=== PATIENT | female | born 1985 | race Caucasian/White ===

== ENCOUNTER 2018-02-14 09:05 | Emergency (ER) | payer OTHER ==
[2018-02-14 09:24] VITALS: BMI 23.9
--- NOTE | 2018-02-14 09:46 | PDOC ---
History of Present Illness <AugustoShanekapam - Last Filed: 02/14/18 12:22> - History of Present Illness Initial Comments: 02/14/18 09:58 The patient is a 32 year old approximately 10 weeks female (), with a significant past medical history of thrombocytopenia (last platelet count was 92K in 12/2017 per pt), who presents to the emergency with vaginal bleeding and pelvic pain since yesterday. Patient reports one episode of light vaginal bleeding (no clots) yesterday afternoon. She reports associated pelvic and epigastric pain, which she describes as a cramping. She denies any associated nausea, vomiting, diarrhea, or constipation. She denies any dysuria, hematuria, frequency, or urgency. She reports some chills, but denies any fever. Patient reports she has seen her OB Dr. Li and is scheduled for an Ultrasound on 02/28/18. She denies any recent trauma, heavy lifting, travel, or sick contacts. Patient reports her previous was a NVSD, no complications. Allergies: NKDA Past Surgical History: None reported Social History: Non smoker. No ETOH or recreational drug use. OBGYN: Dr. Li <Gerson Price - Last Filed: 02/14/18 13:00> - General Chief Complaint: Vaginal Bleeding Stated Complaint: VAGINAL BLEEDING (10 WKS ) Past History <AugustoShanekapam - Last Filed: 02/14/18 12:22> - Past Medical History COPD: No - Suicide/Smoking/Psychosocial Hx Smoking History: Never smoked Have you smoked in the past 12 months: No Information on smoking cessation initiated: No Hx Alcohol Use: No Drug/Substance Use Hx: No Substance Use Type: None <Gerson Price - Last Filed: 02/14/18 13:00> - Past Medical History Allergies/Adverse Reactions: Allergies Allergy/AdvReac Type Severity Reaction Status Date / Time No Known Allergies Allergy Verified 02/14/18 09:19 Home Medications: Ambulatory Orders Vit/Iron Fum/Folic AC [ Tablet] 1 each PO DAILY 02/14/18 Review of Systems - Review of Systems Comments:: 02/14/18 09:59 GENERAL/CONSTITUTIONAL: +Chills. No fever. No weakness. HEAD, EYES, EARS, NOSE AND THROAT: No change in vision. No ear pain or discharge. No sore throat. GASTROINTESTINAL: +Epigastric pain, pelvic pain. No nausea, vomiting, diarrhea or constipation. GENITOURINARY: +Vaginal spotting, brown vaginal discharge. No dysuria, frequency , or change in urination. CARDIOVASCULAR: No chest pain or shortness of breath. RESPIRATORY: No cough, wheezing, or hemoptysis. MUSCULOSKELETAL: No joint or muscle swelling or pain. No neck or back pain. SKIN: No rash NEUROLOGIC: No headache, vertigo, loss of consciousness, or change in strength/ sensation. ENDOCRINE: No increased thirst. No abnormal weight change. HEMATOLOGIC/LYMPHATIC: No anemia, easy bleeding, or history of blood clots. ALLERGIC/IMMUNOLOGIC: No hives or skin allergy. <Gerson Price - Last Filed: 02/14/18 13:00> *Physical Exam - Vital Signs Last Vital Signs Temp Pulse Resp BP Pulse Ox 98.3 F 65 201 H 113/43 99 02/14/18 09:21 02/14/18 09:21 02/14/18 09:21 02/14/18 09:21 02/14/18 09:21 <Ha Casas - Last Filed: 02/14/18 12:22> - Vital Signs Last Vital Signs Temp Pulse Resp BP Pulse Ox 98.3 F 65 201 H 113/43 99 02/14/18 09:21 02/14/18 09:21 02/14/18 09:21 02/14/18 09:21 02/14/18 09:21 - Physical Exam Comments: 02/14/18 09:59 GENERAL: Awake, alert, and fully oriented, in no acute distress HEAD: No signs of trauma EYES: PERRLA, EOMI, sclera anicteric, conjunctiva clear LUNGS: Breath sounds equal, clear to auscultation bilaterally. No wheezes, and no crackles HEART: Regular rate and rhythm, normal S1 and S2, no murmurs, rubs or gallops ABDOMEN: Soft, nontender, normoactive bowel sounds. No guarding, no rebound. No masses PELVIC: Normal ext genitalia, +midline pelvic tenderness. Os is closed. Scant white discharge in the vaginal vault that appeared physiologic. No blood in vault. No adnexal tenderness. EXTREMITIES: Normal range of motion, no edema. No clubbing or cyanosis. No cords, erythema, or tenderness NEUROLOGICAL: Normal speech, cranial nerves intact, negative pronator drift, 5/ 5 strength in all 4 extremities, normal sensation to light touch in all 4 extremities, normal cerebellar exam, normal gait, normal reflexes and tone <Gerson Price - Last Filed: 02/14/18 13:00> ED Treatment Course - LABORATORY CBC & Chemistry Diagram: 02/14/18 10:10 02/14/18 10:10 - ADDITIONAL ORDERS Additional order review: Laboratory Results 02/14/18 02/14/18 02/14/18 10:10 10:10 10:10 Sodium 139 Potassium 4.0 Chloride 107 Carbon Dioxide 27 Anion Gap 5 L BUN 7 Creatinine 0.5 L Creat Clearance w eGFR > 60 Random Glucose 75 Calcium 8.7 Total Bilirubin 0.5 AST 14 L ALT 21 Alkaline Phosphatase 64 Total Protein 7.4 Albumin 3.8 Beta HCG, Quant 71355.0 Urine Color Urine Appearance Urine pH Ur Specific [place] Urine Protein Urine Glucose (UA) Urine Ketones Urine Blood Urine Nitrite Urine Bilirubin Urine Urobilinogen Ur Leukocyte Esterase Urine WBC (Auto) Urine RBC (Auto) Ur Epithelial Cells Urine Mucus Blood Type O POSITIVE Antibody Screen Negative 02/14/18 10:10 Sodium Potassium Chloride Carbon Dioxide Anion Gap BUN Creatinine Creat Clearance w eGFR Random Glucose Calcium Total Bilirubin AST ALT Alkaline Phosphatase Total Protein Albumin Beta HCG, Quant Urine Color Straw Urine Appearance Clear Urine pH 9.0 H Ur Specific [place] 1.009 Urine Protein Negative Urine Glucose (UA) Negative Urine Ketones Negative Urine Blood Negative Urine Nitrite Negative Urine Bilirubin Negative Urine Urobilinogen Negative Ur Leukocyte Esterase 2+ H Urine WBC (Auto) 3 Urine RBC (Auto) 1 Ur Epithelial Cells Rare Urine Mucus Rare Blood Type Antibody Screen 02/14/18 10:10 RBC 4.33 MCV 86.7 MCHC 33.3 RDW 16.7 H MPV 12.8 H Neutrophils % 65.5 Lymphocytes % 24.7 Monocytes % 7.4 Eosinophils % 1.6 Basophils % 0.8 - RADIOLOGY Radiograph Interpretation: 02/14/18 12:22 EXAM: Transvaginal US INTERPRETED BY: Dr. Duran REVIEWED BY: Dr. Price IMPRESSION: Intrauterine gestational sac with mean sac diameter measuring 2.2 cm containing a yolk sac but no pole. These findings are suspicious of failure. A follow-up sonogram in 7-14 days is suggested. - Medications Given in the ED: ED Medications Discontinued Medications Generic Name Dose Route Start Last Admin Trade Name [place] PRN Reason Stop Dose Admin Acetaminophen 1,000 mg 02/14/18 09:48 02/14/18 10:07 Tylenol - PO 02/14/18 09:49 1,000 mg ONCE ONE Administration <Ha Casas - Last Filed: 02/14/18 12:22> - LABORATORY CBC & Chemistry Diagram: 02/14/18 10:10 02/14/18 10:10 <AlbertYomna - Last Filed: 02/14/18 13:00> Medical Decision Making - Medical Decision Making 02/14/18 09:56 32-year-old female currently 10 weeks presents emergency Department with 2 days of suprapubic cramping and one episode of dark vaginal bleeding. Vitals are unremarkable. Exam with midline pelvic tenderness palpation with a closed cervical os and no blood in the vaginal vault. Differential includes but is not limited to threatened versus completed . Plan: -labs -ua -US -dispo 02/14/18 12:53 Labs wnl. UA with 2+ LE. T&S O+ Ultrasound with no pole concerning for failed . Radiology recommends repeat ultrasound in 1 week. Results discussed with patient who is upset as this was a desired . Patient was counseled on what it means to have failed . We attempted to contact her OB Brenda Li, her office staff states she is not availible to talk. We attempted to schedule an appointment for her in 1 week, but the transition coach states they are fully booked and they can not squeeze her in. Advised pt to return to the ED if she is not successful at making an appointment. Also advised the patient to return to the emergency department if she has any heavy bleeding such as soaking through pads for more than 3 hours or new/concerning symptoms. Patient expresses understanding of the plan. I discussed the physical exam findings, ancillary test results and final diagnoses with the patient. I answered all of the patient's questions. The patient was satisfied with the care received and felt comfortable with the discharge plan and treatment plan. The patient will call their primary care physician within 24 hours to arrange follow-up and will return to the Emergency Department with any new, persistent or worsening symptoms. <Gerson Price - Last Filed: 02/14/18 13:00> *DC/Admit/Observation/Transfer - Attestations Scribe Attestion: 02/14/18 12:23 Documentation prepared by Ha Casas, acting as biomedical service engineer for Gerson Price MD. <Ha Casas - Last Filed: 02/14/18 12:22> - Discharge Dispostion Decision to Admit order: No - Attestations Physician Attestion: 02/14/18 13:00 I, Dr. Gerson Price MD, attest that this document has been prepared under my direction and personally reviewed by me in its entirety. I further attest, that it accurately reflects all work, treatment, procedures and medical decision -making performed by me. <Gerson Price - Last Filed: 02/14/18 13:00> Diagnosis at time of Disposition: Threatened - Discharge Dispostion Disposition: HOME Condition at time of disposition: Stable - Referrals Referrals: Yue Li MD [Certified Nurse Manager Of Environmental Services] - - Patient Instructions Printed Discharge Instructions: DI for Threatened Additional Instructions: As discussed, Follow-up with Dr. Li in one week for a repeat ultrasound. Return to the emergency department if you have any new, worsening or concerning symptoms such as heavy vaginal bleeding, dizziness, shortness of breath. Print Language: [place]
[2018-02-14] MEDS ORDERED: ACETAMINOPHEN 500 MG TABLET (FP) PO ONE (09:48)
[2018-02-14] MEDS ORDERED: ACETAMINOPHEN 500 MG TABLET (FP) ONE (09:57)
[2018-02-14 10:18] LABS: URINE APPEARANCE CLEAR; URINE BILIRUBIN NEGATIVE (<2.0 mg/dL); URINE COLOR STRAW; URINE GLUCOSE (UA) NEGATIVE (NEGATIVE); URINE KETONE NEGATIVE (NEGATIVE); URINE NITRITE NEGATIVE (NEGATIVE); URINE PROTEIN NEGATIVE (NEGATIVE); URINE UROBILINOGEN NEGATIVE mg/dL (0.2-1.0)
[2018-02-14 10:19] LABS: URINE LEUK ESTERASE 2+ (NEGATIVE)
[2018-02-14 10:21] LABS: BASO % 0.8 % (0-2.0); EOS % 1.6 % (0-4.5); HEMATOCRIT 37.5 % (32.4-45.2); HEMOGLOBIN 12.5 GM/dL (10.7-15.3); LYMPH % 24.7 % (8-40); MCH 28.9 pg (25.7-33.7); MCHC 33.3 g/dl (32.0-36.0); MEAN CELL VOLUME 86.7 fl (80-96); MEAN PLT VOLUME 12.8 fl (7.5-11.1); MONO % 7.4 % (3.8-10.2); NEUT % 65.5 % (42.8-82.8); PLATELET COUNT 65 K/MM3 (134-434); RBC 4.33 M/mm3 (3.60-5.2); RDW 16.7 % (11.6-15.6)
[2018-02-14 10:40] LABS: ALBUMIN 3.8 g/dl (3.4-5.0); ALK PHOS 64 U/L (45-117); ANION GAP 5 (8-16); BILIRUBIN,TOTAL 0.5 mg/dL (0.2-1.0); BLOOD UREA NITROGEN 7 mg/dL (7-18); CALCIUM 8.7 mg/dL (8.5-10.1); CHLORIDE 107 mmol/L (98-107); CO2 27 mmol/L (21-32); CREATININE 0.5 mg/dL (0.55-1.02); GLUCOSE,RANDOM 75 mg/dL (74-106); SGOT/AST 14 U/L (15-37); SGPT/ALT 21 U/L (12-78); SODIUM 139 mmol/L (136-145); TOT PROT 7.4 g/dl (6.4-8.2)
[2018-02-14 10:58] LABS: EPI CELLS RARE /HPF (FEW); URINE MUCUS RARE
[2018-02-14 13:13] VITALS: BP 108/68; PULSE 72; TEMP 98
== END 2018-02-14 13:13 | disposition home or self-care (01) ==
LOC: JER 09:05
DX: O26.891 Other specified pregnancy related conditions, first trimester (principal); Z3A.10 10 weeks gestation of pregnancy; O20.0 Threatened abortion; D69.6 Thrombocytopenia, unspecified
CPT/HCPCS: 36415; 76817-TC; 80053; 81003; 81015; 84702; 85025; 86850; 86900; 86901; 87086; 99283-25

== ENCOUNTER 2024-11-05 11:12 | Day surgery (SDC) | payer OTHER ==
[2024-11-05] MEDS: FERRIC CARBOXYMALTOSE 750 MG in SODIUM CHLORIDE 250 ML IVPB ONE (12:25)
[2024-11-05 13:54] VITALS: RESP 18; TEMP 97.9
[2024-11-05 13:59] VITALS: BP 98/60; PULSE 68
== END 2024-11-05 13:35 | disposition home or self-care (01) ==
LOC: JONCCHEMO 11:12
PROVIDERS: ATTEND Internal Medicine Hematology & Oncology
PROC: 3E033GC Introduction of Other Therapeutic Substance into Peripheral Vein, Percutaneous Approach (ICD-10-PCS; principal; 2024-11-05)
DX: E61.1 Iron deficiency (principal)
CPT/HCPCS: 96365; J1439

== ENCOUNTER 2024-11-12 16:00 | Day surgery (SDC) | payer OTHER ==
[2024-11-12] MEDS: FERRIC CARBOXYMALTOSE 750 MG in SODIUM CHLORIDE 250 ML IVPB ONE (16:10)
[2024-11-12 17:25] VITALS: BP 91/52; PULSE 73; RESP 20; TEMP 98.1
== END 2024-11-12 17:10 | disposition home or self-care (01) ==
LOC: J7W 16:00 → JONCCHEMO 16:00
PROVIDERS: ATTEND Internal Medicine Hematology & Oncology
PROC: 3E033GC Introduction of Other Therapeutic Substance into Peripheral Vein, Percutaneous Approach (ICD-10-PCS; principal; 2024-11-12)
DX: D50.9 Iron deficiency anemia, unspecified (principal)
CPT/HCPCS: 96365; J1439